=== PATIENT | female | born 1950 | race Caucasian/White ===

== ENCOUNTER 2017-01-02 12:35 | Emergency (ER) | payer MEDICARE, OTHER ==
[~2017-01-02] VITALS: Ht 157.5 cm; Wt 64.0 kg
[2017-01-02 12:42] VITALS: Ht 157.5 cm; Wt 64.0 kg
[2017-01-02] MEDS ORDERED: IBUP-1542 PO (14:11)
[2017-01-02] MEDS ORDERED: BENZ100C70 PO (14:11)
--- NOTE | 2017-01-02 14:14 | RADRPT ---
PROCEDURE: XR Chest. CLINICAL INDICATION: Infiltrate. TECHNIQUE: Single frontal view of the chest was obtained. COMPARISON: None FINDINGS: The soft tissues are normal. There are degenerative osteophytes in the thoracic spine. The heart h as a transverse configuration from a poor inspiration. The cardiomediastinal silhouette and hilar s tructures are normal. The pulmonary vasculature is normal. Vascular calcifications are suspected in the aortic arch. The lungs are clear. The costophrenic angles are normal. IMPRESSION: 1. 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 RPTAT:AAJJ Physician Oriana Date Time Electronically viewed and signed by Physician Oriana on 01/02/2017 14:13 TAJ/
[2017-01-02 14:33] VITALS: BP 139/74; PULSE 75; RESP 19; TEMP 98.3
--- NOTE | 2017-01-02 18:37 | ERD ---
ER Documentation Chief Complaint Date/Time DATE: 01/02/17 TIME: 18:35 Chief Complaint COUGH INTERMITTENT FEW DAYS HPI 66-year-old woman with nonproductive cough 2-3 days. She denies chest pain or shortness of breath, no calf or leg swelling, no vomiting or diarrhea. She is using an DELISA inhibitor to control hypertension. ROS All systems reviewed and are negative except as per history of present illness. Medications Home Meds Active Scripts Benzonatate* (Tessalon Perle*) 100 Mg Capsule, 100 MG PO BID for COUGH, #12 CAP Prov:RIKKI LIVINGSTON MD 01/02/17 Ibuprofen* (Ibuprofen*) 600 Mg Tablet, 600 MG PO Q8 for PAIN AND/OR INFLAMMATION , #30 TAB Prov:RIKKI LIVINGSTON MD 01/02/17 PMhx/Soc Hypertension, diabetes mellitus History of Surgery: No Anesthesia Reaction: No Hx Neurological Disorder: No Hx Respiratory Disorders: No Hx Cardiac Disorders: Yes (HTN) Hx Psychiatric Problems: No Hx Miscellaneous Medical Probl: Yes (DM) Hx Alcohol Use: No Hx Substance Use: No Hx Tobacco Use: No Smoking Status: Never smoker FmHx Family History: No diabetes Physical Exam Vitals Vital Signs Date Time Temp Pulse Resp B/P Pulse Ox O2 Delivery O2 Flow Rate FiO2 01/02/17 14:33 98.3 75 19 139/74 100 Room Air 01/02/17 12:42 97.7 71 18 144/67 99 Physical Exam GENERAL: Well-developed, well-nourished, well-hydrated, in no apparent distress , looks nontoxic in appearance HEENT: Moist mucous membranes, pink conjunctiva, no cervical spine tenderness or step-off deformities, no goiter, no jaundice or icterus, extraocular movements intact without pain. No submandibular induration, and no pharyngeal erythema NEURO: Alert and oriented 3, cranial nerves II through XII intact bilaterally, pupils equal round reactive to light, no focal deficits or facial asymmetry, sensation intact distally Strength 5/5 in upper and lower extremities bilaterally CARDIAC: Regular rate and rhythm, no murmurs rubs or gallops LUNGS: Clear bilaterally no wheezing crackles or stridor ABDOMEN: Soft nontender, no guarding, no rigidity, no rebound, no psoas sign no obturator sign. Normoactive bowel sounds SKIN: Warm and dry to touch, no abrasions, contusions, or hematomas, no lacerations, no ecchymosis, no target lesions, and without ulcers EXTREMITIES: No clubbing cyanosis or edema, calves are bilaterally symmetrical, no Homans sign, no popliteal cord sign. Distal pulses equal and bilateral PSYCH: Normal affect without agitation or irritability Procedures/MDM Chest X-ray 1V Interpreted by me: Soft Tissue: No acute abnormalities Bones: No acute abnormalities Mediastinum/Cardiac Silhouette/Lungs: No acute abnormalities Differential diagnoses considered, included but not limited to acute coronary syndrome, pulmonary embolism, aortic dissection, abdominal aortic aneurysm, sepsis, stroke, meningitis, encephalitis, pneumonia, appendicitis, cholecystitis , bowel obstruction, pyelonephritis, nephrolithiasis, cystitis, as well as metabolic, hematologic, and electrolyte abnormalities. As well as abscess, cellulitis, fractures, and dislocations. Patient feels much better at this time, and vital signs are normal, symptoms have improved. I did give strict instructions to return to the ED if symptoms continue or worsen, patient will otherwise follow-up with primary care physician. Patient understood instructions and agreed to plan. Disclaimer: Inadvertent spelling and grammatical errors are likely due to EHR/ dictation software use and do not reflect on the overall quality of patient care. Also, please note that the electronic time recorded on this note does not necessarily reflect the actual time of the patient encounter. Departure Diagnosis: Primary Impression: Cough Condition: Good Patient Instructions: Cough, Chronic, Uncertain Cause, (Adult) RIKKI LIVINGSTON MD Jan 02, 2017 18:37
== END 2017-01-02 14:34 | disposition home or self-care (01) ==
LOC: FTE 12:35
DX: R05 Cough (principal); I10 Essential (primary) hypertension; E11.9 Type 2 diabetes mellitus without complications
CPT/HCPCS: 71010

== ENCOUNTER 2017-01-29 13:34 | Emergency (ER) | payer MEDICARE, OTHER ==
[~2017-01-29] VITALS: Ht 160 cm; Wt 62.0 kg
[~2017-01-29 13:34] MED LIST: BENZ100C70 PO; IBUP-1542 PO
[2017-01-29 13:36] VITALS: Ht 160 cm; Wt 62.0 kg
--- NOTE | 2017-01-29 15:06 | RADRPT ---
PROCEDURE: US Lower extremity Venous. CLINICAL INDICATION: Left leg edema, varicose veins TECHNIQUE: Multiple sonographic images of the left lower extremity deep venous system was obtained utilizing grayscale, color-flow, compressive sonography and doppler imaging with augmentation. The images were reviewed on a PACS workstation. COMPARISON: None. FINDINGS: There is normal compressibility and flow within the left common femoral, femoral, posterior tibial, peroneal and popliteal veins. There are varicose veins in the soft tissues of the region of the left knee and left calf. There is no evidence of thrombosis. RPTAT: AA IMPRESSION: No sonographic evidence for deep venous thrombosis. Varicose veins with no evidence of thrombosis. .Anthony Roman MD, MD Date Time Electronically viewed and signed by .Anthony Roman MD, on 01/29/2017 15:06 .S/
--- NOTE | 2017-01-29 15:38 | RADRPT ---
PROCEDURE: Foot radiograph. CLINICAL INDICATION: Pain. TECHNIQUE: AP, lateral and oblique views of the right foot was obtained. COMPARISON: None relevant listed. FINDINGS: No acute fracture. Alignment is anatomic. No bone erosion are identified. Joint spaces are preserved . No soft tissue swelling. Moderate plantar and dorsal calcaneal enthesophytes. IMPRESSION: No acute fracture or dislocation. RPTAT: PP Physician Makenzie Date Time Electronically viewed and signed by Physician Makenzie on 01/29/2017 15:38 LG/
[2017-01-29] MEDS ORDERED: IBUP400T22 PO (15:52)
--- NOTE | 2017-01-29 18:03 | ERD ---
ER Documentation Chief Complaint Date/Time DATE: 01/29/17 TIME: 18:00 Chief Complaint left leg pain x 2 months and right foot pain x 15 days HPI This is a 66-year-old female with history of diabetes type 2 and hypertension presenting to the emergency department complaining of left leg pain for the past 2 months locating it in her veins and right foot pain in the past 2 weeks. Patient locates the right foot pain in her heel, she rates the pain moderate in severity. Patient states that she has not taken any medications. She denies any recent traveling or hormones ROS All systems reviewed and are negative except as per history of present illness. Medications Home Meds Active Scripts Ibuprofen* (Ibuprofen*) 400 Mg Tablet, 400 MG PO Q6H Y for PAIN, #30 TAB Prov:NISHA SHELBY PA-C 01/29/17 Benzonatate* (Tessalon Perle*) 100 Mg Capsule, 100 MG PO BID for COUGH, #12 CAP Prov:RIKKI LIVINGSTON MD 01/02/17 Ibuprofen* (Ibuprofen*) 600 Mg Tablet, 600 MG PO Q8 for PAIN AND/OR INFLAMMATION , #30 TAB Prov:RIKKI LIVINGSTON MD 01/02/17 Allergies Allergies: Coded Allergies: No Known Allergy (Unverified , 01/29/17) PMhx/Soc History of Surgery: No Anesthesia Reaction: No Hx Neurological Disorder: No Hx Respiratory Disorders: No Hx Cardiac Disorders: Yes (HTN) Hx Psychiatric Problems: No Hx Miscellaneous Medical Probl: Yes (DM) Hx Alcohol Use: No Hx Substance Use: No Hx Tobacco Use: No Smoking Status: Never smoker Physical Exam Vitals Vital Signs Date Time Temp Pulse Resp B/P Pulse Ox O2 Delivery O2 Flow Rate FiO2 01/29/17 13:36 79 18 136/65 99 Physical Exam General: WD/WN, in no apparent distress, non-toxic appearing HENT: NC/AT Eyes: Conjunctiva normal Neck: Supple Pulm: Clear to auscultation, normal labored breathing; no wheezing/rales/ rhonchi heard CV: Good capillary refill GI: Non-distended, no guarding Back: No masses Ext: Thick varicose veins in the left lower leg, tender palpation the right calcaneal heel Neuro: Moves on all fours Skin: intact Psych: Normal mood Procedures/MDM This is a 58-year-old female presenting to the emergency department complaining of left lower leg for the past couple months, I have a low suspicion for DVT, fracture dislocation. Patient also has right foot pain which is likely due to plantar fasciitis versus strain versus other. I will low suspicion for fracture dislocation. Patient is stable and neurovascular intact to be discharged home to follow-up with primary care physician. Discussed return to the ER for any worsening tenseness. She understands and agrees with plan Venous ultrasound of the left lower leg do not show any evidence of DVT. X-ray of the right foot did not show any acute fracture dislocation Departure Diagnosis: Primary Impression: Foot pain Additional Impression: Varicose vein of leg Condition: Stable Patient Instructions: Understanding Spider and Varicose Veins, Treating Plantar Fasciitis, Plantar Fasciitis, Varicose Veins Additional Instructions: Visite a marshall naomie rutledge para un EXAMEN.Regrese a estas instalaciones si no se mejora socorro esperbamos o socorro le dijimos. [place] toda la medicina ren y socorro se le indic. Regrese a estas instalaciones si no se mejora socorro esperbamos o socorro le dijimos. NISHA SHELBY PA-C Jan 29, 2017 18:03
== END 2017-01-29 15:58 | disposition home or self-care (01) ==
LOC: FTE 13:34
DX: M79.671 Pain in right foot (principal); I83.92 Asymptomatic varicose veins of left lower extremity; I10 Essential (primary) hypertension; E11.9 Type 2 diabetes mellitus without complications
CPT/HCPCS: 73630; 93971

== ENCOUNTER 2017-09-12 13:36 | Emergency (ER) | END 2017-09-12 16:47 | disposition home or self-care (01) ==